=== PATIENT | female | born 1990 ===

== ENCOUNTER 2016-05-25 01:31 | Outpatient (CLI) | payer MEDICAID ==
[2016-05-25 02:30] VITALS: BP 110/59
== END 2016-05-25 02:43 | disposition home or self-care (01) ==
LOC: TRG 01:31
PROVIDERS: ATTEND Obstetrics & Gynecology
DX: O47.03 False labor before 37 completed weeks of gestation, third trimester (principal); Z3A.36 36 weeks gestation of pregnancy
CPT/HCPCS: 59025

== ENCOUNTER 2016-06-07 19:44 | Inpatient (IN) | payer MEDICAID ==
[2016-06-07] MEDS ORDERED: STADOL IV PRN (20:47)
[2016-06-07 21:09] LABS: Hematocrit 30.2 % (30.3-42.9); Hemoglobin 9.6 gm/dl (10.1-14.3); Mean Corpuscular HGB Conc 32 % (30-34); Platelet Count 167 K/mm3 (140-440); Red Blood Count 4.36 M/mm3 (3.65-5.03); Red Cell Distribution Width 16.6 % (13.2-15.2); White Blood Count 9.2 K/mm3 (4.5-11.0)
[2016-06-07 21:10] LABS: Mean Corpuscular Hemoglobin 22 pg (28-32); Mean Corpuscular Volume 69 fl (79-97)
[2016-06-07] MEDS: LACTATED RINGERS 1,000 ML IV SCH ×2 (21:18→22:20)
[2016-06-08] MEDS ORDERED: NARCAN 2 MG/2 ML IV PRN (00:02)
[2016-06-08] MEDS ORDERED: ePHEDrine SULFATE IV PRN ×2 (00:02→03:03)
--- NOTE | 2016-06-08 00:04 | Anesthesia Consultation ---
Anesthesia Consult and Med Hx Date of service: 06/08/16 - Airway Anesthetic Teeth Evaluation: Good ROM Head & Neck: Adequate Mental/Hyoid Distance: Adequate Mallampati Class: Class II Intubation Access Assessment: Good - Pulmonary Exam CTA: Yes - Cardiac Exam Cardiac Exam: No Murmur - Pre-Operative Health Status ASA Pre-Surgery Classification: ASA2 Proposed Anesthetic Plan: Epidural - Pulmonary Hx Asthma: No COPD: No Hx Pneumonia: No - Cardiovascular System Hx Hypertension: No - Central Nervous System Hx Seizures: No Hx Psychiatric Problems: No - Endocrine Hx Renal Disease: No Hx End Stage Renal Disease: No Hx Hypothyroidism: No Hx Hyperthyroidism: No - Hematic Hx Anemia: No Hx Sickle Cell Disease: No - Other Systems Hx Alcohol Use: No
[2016-06-08] MEDS ORDERED: fentaNYL-BUPIV 2 MCG/ML-0.125% 200 MCG/100 ML BAG EPIDURAL SCH (01:00)
[2016-06-08] MEDS ORDERED: PITOCin/NS 20 UNIT/1000ML DRIP 20,000 MILLIUNITS/1,000 ML BAG IV ONE (02:12)
[2016-06-08] MEDS ORDERED: MINERAL OIL ONE (02:35)
[2016-06-08] MEDS: PITOCin/NS 20 UNIT/1000ML DRIP 20 UNITS/1,000 ML BAG IV SCH (02:46)
[2016-06-08] MEDS ORDERED: BRETHINE SUB-Q PRN (03:03)
[2016-06-08] MEDS ORDERED: XYLOCAINE 2% INFILTRATI ONE (03:03)
[2016-06-08] MEDS ORDERED: MINERAL OIL PO PRN (03:03)
[2016-06-08] MEDS ORDERED: BRETHINE IVP PRN (03:03)
[2016-06-08] MEDS ORDERED: MILK OF MAGNESIA PO PRN (03:05)
[2016-06-08] MEDS ORDERED: TUCKS PAD TP PRN (03:05)
[2016-06-08] MEDS ORDERED: DERMOPLAST TP PRN (03:05)
[2016-06-08] MEDS ORDERED: DULCOLAX PR PRN (03:05)
[2016-06-08] MEDS ORDERED: LANSINOH TP PRN (03:05)
[2016-06-08] MEDS ORDERED: BENADRYL PO PRN (03:05)
[2016-06-08] MEDS ORDERED: PHENERGAN PO PRN (03:05)
[2016-06-08] MEDS ORDERED: ANUCORT-HC PR PRN (03:05)
[2016-06-08] MEDS ORDERED: NORCO 5/325 PO PRN (03:08)
--- NOTE | 2016-06-08 03:13 | History and Physical Report ---
History of Present Illness Date of examination: 06/08/16 Date of admission: 06/07/16 19:44 Chief complaint: Labor Pains History of present illness: Uncomplicated course Past History Past Medical History: no pertinent history Past Surgical History: no surgical history Family/Genetic History: none Social history: no significant social history, - Obstetrical History Expected Date of Delivery: 06/16/16 Actual Gestation: 38 Week(s) 6 Day(s) : 2 Para: 1 Number of Living Children: 1 #1 Gender: Male year: 2,[birth year] Birthweight: 3.969 kg Method of Delivery: Vaginal Gestational age at delivery: 40 Complications: none Medications and Allergies Allergies Allergy/AdvReac Type Severity Reaction Status Date / Time No Known Allergies Allergy Verified 12/23/12 00:06 Home Medications Medication Instructions Recorded Confirmed Last Taken Type No Known Home Medications [No 06/07/16 06/07/16 Unknown History Reported Home Medications] Active Meds: Active Medications Benzocaine/Menthol (Dermoplast) 1 spray TP PRN PRN PRN Reason: Episiotomy Pain Bisacodyl (Dulcolax) 10 mg MT BID PRN PRN Reason: Constipation Butorphanol Tartrate (Stadol) 2 mg IV Q2H PRN PRN Reason: Labor Pain Last Admin: 06/07/16 22:20 Dose: 2 mg Diphenhydramine HCl (Benadryl) 25 mg PO Q6H PRN PRN Reason: Itching Lactated Ringer's (Lactated Ringers) 1,000 mls @ 125 mls/hr IV DIRECT JIMMY Last Admin: 06/07/16 22:20 Dose: 125 mls/hr Fentanyl/Bupivacaine/Sodium Chlor (Fentanyl-Bupiv 2 Mcg/Ml-0.125%) 200 mcg in 100 mls @ 12 mls/hr EPIDURAL TITR JIMMY PRN Reason: Protocol Last Admin: 06/08/16 00:16 Dose: 12 mls/hr Lactated Ringer's (Lactated Ringers) 1,000 mls @ 125 mls/hr IV DIRECT JIMMY Oxytocin/Sodium Chloride (Pitocin/Ns 20 Unit/1000ml Drip) 20 units in 1,000 mls @ 125 mls/hr IV DIRECT JIMMY Influenza Virus Vaccine Quadrival (Fluarix Quad 2135-2302(36 Mos+)) 60 mcg IM .ONCE ONE Stop: 06/08/16 12:01 Mineral Oil (Mineral Oil) 30 ml PO QHS PRN PRN Reason: Constipation Review of Systems All systems: negative - Vital Signs Vital signs: Vital Signs Pulse BP 100 H 130/75 06/07/16 20:32 06/07/16 20:32 Temp Pulse Resp BP Pulse Ox 98.2 F 136 H 20 174/131 99 06/08/16 02:05 06/08/16 03:02 06/08/16 02:05 06/08/16 03:02 06/08/16 02:49 - Physical Exam Breasts: Positive: normal Cardiovascular: Regular rate Lungs: Positive: Clear to auscultation, Normal air movement Abdomen: Positive: normal appearance, normal bowel sounds Genitourinary (Female): Positive: normal external genitalia, normal perenium Vagina: Positive: normal moisture Uterus: Positive: enlarged Anus/Rectum: Positive: normal perianal skin Extremities: Positive: normal - Obstetrical FHR: category 1 Results Result Diagrams: 06/07/16 20:55 Abnormal lab results 06/07/16 Range/Units 20:55 Hgb 9.6 L (10.1-14.3) gm/dl Hct 30.2 L (30.3-42.9) % MCV 69 L (79-97) fl MCH 22 L (28-32) pg RDW 16.6 H (13.2-15.2) % All other labs normal. Assessment and Plan A: IUP @ 38 6/7 Weeks Category I Tracing Active Labor GBS Negative P: Admit to L&D per routine orders Expectant Management Epidural Anesthesia
--- NOTE | 2016-06-08 03:17 | Procedure Note ---
OB Delivery Note - Delivery Date of Delivery: 06/08/16 (0240) Surgeon: GRAY LEUNG Estimated blood loss: other (250) - Vaginal Delivery presentation: vertex Delivery position: OA Intrapartum events: none Delivery induction: none Delivery monitor: external FHT, external uterine Route of delivery: Delivery placenta: spontaneous Delivery cord: 3 umbilical vessels Episiotomy: none Delivery laceration: 1st degree Delivery repair: vicryl Anesthesia: epidural Delivery comments: of a live 9'2 male infant over a 1st degree perineal laceration under epidural with Apgars of 8 and 9 at 0240 on 06/08/2016. Spontaneous delivery of placenta complete and intact with [place] side presenting at 0246. Fundus is firm and midline located 4 below the U. Lochia scant. Perineal laceration repaired with 2-[address]-1. - Infant A at 1 minute: 8 at 5 minutes: 9 Gender: Male (9'2)
[2016-06-08] MEDS ORDERED: LACTATED RINGERS 1,000 ML IV SCH (04:00)
[2016-06-08] MEDS ORDERED: SODIUM CHLORIDE FLUSH SYRINGE 10 ML IV NR (04:00)
[2016-06-08] MEDS ORDERED: SENOKOT S PO SCH (06:00)
[2016-06-08] MEDS: MOTRIN PO SCH ×3 (06:16→23:43)
[2016-06-08] MEDS ORDERED: FLUARIX QUAD 2016-2017(36 MOS+) IM ONE (12:00)
[2016-06-08 15:42] LABS: Hemoglobin 8.6 gm/dl (10.1-14.3)
[2016-06-09] MEDS: MOTRIN PO SCH ×2 (05:04→11:51)
[2016-06-09] MEDS ORDERED: BOOSTRIX IM ONE (06:00)
--- NOTE | 2016-06-09 09:35 | Progress Note ---
Assessment and Plan A: PPD #1 -stable P: Discharge home today Subjective - Subjective Date of service: 06/09/16 Principal diagnosis: Patient reports: appetite normal : doing well Objective - Vital Signs Latest vital signs: Vital Signs Temp Pulse Resp BP 06/09/16 00:00 98.0 F 73 20 139/72 06/08/16 17:25 97.5 F L 83 18 134/75 06/08/16 12:13 98.6 F 90 24 115/60 Intake and Output 06/08/16 06/09/16 06/09/16 22:59 06:59 14:59 Intake Total 600 240 Output Total 600 Balance 0 240 Intake: Oral 600 240 Output: Urine 600 Void 600 Other: Total, Intake Amount 240 240 Total, Output Amount 600 # Voids Void 1 - Exam Breasts: Present: deferred Cardiovascular: Present: Regular rate Lungs: Present: Clear to auscultation Abdomen: Present: soft Vulva: both: normal Uterus: Present: fundal height below umbilicus Extremities: Present: normal Deep Tendon Reflex Grade: Normal +2 - Labs Labs: Abnormal lab results 06/08/16 Range/Units 14:57 Hgb 8.6 L (10.1-14.3) gm/dl Hct 27.0 L (30.3-42.9) %
--- NOTE | 2016-06-09 09:36 | Discharge Summary ---
Providers - Providers Date of Admission: 06/07/16 19:44 Date of discharge: 06/09/16 Attending physician: MIKE MORRISON MD Primary care physician: MIKE MORRISON MD Hospitalization Reason for admission: induction of labor Delivery: Episiotomy: none Laceration: 1st degree complications: none Discharge diagnosis: IUP at term delivered [place] baby: male Condition at discharge: Good Disposition: DISCHARGED TO HOME OR SELFCARE Plan - Provider Discharge Summary Additional instructions: [] Smoking cessation referral if applicable(refer to patient education folder for contact #) [] Refer to [facility]'s [facility] Booklet Call your doctor immediately for: * Fever > 100.5 * Heavy vaginal bleeding ( >1 pad per hour) * Severe persistent headache * Shortness of breath * Reddened, hot, painful area to leg or breast * Drainage or odor from incision. * Keep incision clean and dry at all times and follow doctor's instructions regarding bathing/showering - Follow up plan Follow up: MIKE TEE MD [Primary Care Provider] - 7 Days
[2016-06-09] MEDS ORDERED: FLUARIX QUAD 2016-2017(36 MOS+) IM ONE (12:00)
--- NOTE | 2016-06-09 15:30 | Progress Note ---
Subjective Date of service: 06/09/16 Principal diagnosis: Interval history: NO anesthetic complications, ambulating Objective - Constitutional Vitals: Vital Signs - 12hr 06/09/16 08:18 Temperature 97.9 F Pulse Rate [ 82 Left] Respiratory 20 Rate Blood Pressure 120/78 [Left Arm] - Labs CBC & Chem 7: 06/08/16 14:57 Labs: Abnormal lab results 06/08/16 Range/Units 14:57 Hgb 8.6 L (10.1-14.3) gm/dl Hct 27.0 L (30.3-42.9) %
[2016-06-09 18:47] VITALS: BP 110/70
== END 2016-06-09 17:40 | disposition home or self-care (01) | DRG 775 ==
LOC: LD 19:44 → OB 06-08 04:34
PROVIDERS: ADMIT Obstetrics & Gynecology; ATTEND Obstetrics & Gynecology
PROC: 0HQ9XZZ Repair Perineum Skin, External Approach (ICD-10-PCS; principal; 2016-06-08)
PROC: 10E0XZZ Delivery of Products of Conception, External Approach (ICD-10-PCS; 2016-06-08)
PROC: 00HU33Z Insertion of Infusion Device into Spinal Canal, Percutaneous Approach (ICD-10-PCS; 2016-06-08)
PROC: 3E0R3CZ (ICD-10-PCS; 2016-06-08)
PROC: 3E0234Z Introduction of Serum, Toxoid and Vaccine into Muscle, Percutaneous Approach (ICD-10-PCS; 2016-06-08)
DX: O70.0 First degree perineal laceration during delivery (principal); Z3A.38 38 weeks gestation of pregnancy; Z37.0 Single live birth
CPT/HCPCS: 36415; 85014; 85018; 85027; 86850; 86900; 86901; 90471; 90686; 90715; 99211; G0008; G0463; J0595; J2590; J7120